=== PATIENT | male | born 1945 | race Caucasian/White ===

== ENCOUNTER 2018-04-04 09:56 | Emergency (ER) | payer MEDICARE ==
[~2018-04-04] VITALS: Ht 185.4 cm; Wt 116.1 kg
[2018-04-04] MEDS ORDERED: TOPROL XL50 MG PO (10:12)
[2018-04-04] MEDS ORDERED: KETOROLAC TROME10 MG PO (11:14)
[2018-04-04] MEDS ORDERED: METHYLPREDNISOLO4 M1 PO (11:14)
== END 2018-04-04 11:29 | disposition home or self-care (01) ==
LOC: ED 09:56
DX: S66.911A Strain of unspecified muscle, fascia and tendon at wrist and hand level, right hand, initial encounter (principal); S46.911A Strain of unspecified muscle, fascia and tendon at shoulder and upper arm level, right arm, initial encounter; Z79.899 Other long term (current) drug therapy; W17.89XA Other fall from one level to another, initial encounter
CPT/HCPCS: 73030; 73110; 99283